=== PATIENT | female | born 1990 | race Two or more races ===

== ENCOUNTER 2016-10-23 14:35 | Observation (INO) | payer MEDICAID | END 2016-10-23 16:00 | disposition home or self-care (01) | DRG 566 | LOC: LDRP 14:35 | PROVIDERS: ADMIT Obstetrics & Gynecology; ATTEND Obstetrics & Gynecology | DX: O26.893 Other specified pregnancy related conditions, third trimester (principal); R10.30 Lower abdominal pain, unspecified; Z3A.38 38 weeks gestation of pregnancy | CPT/HCPCS: 59025; 76818; 81002; G0378 ==

== ENCOUNTER 2016-10-26 19:00 | Observation (INO) | payer MEDICAID ==
[2016-10-29] MEDS ORDERED: PREN-125 PO (21:26)
[2016-10-29] MEDS ORDERED: FERR1TAB36 PO (21:26)
== END 2016-10-26 20:34 | disposition home or self-care (01) | DRG 566 ==
LOC: LDRP 19:00
PROVIDERS: ADMIT Specialist; ATTEND Specialist
DX: O26.893 Other specified pregnancy related conditions, third trimester (principal); N89.8 Other specified noninflammatory disorders of vagina; O62.9 Abnormality of forces of labor, unspecified; Z3A.39 39 weeks gestation of pregnancy
CPT/HCPCS: 59025; 76818; 81002; G0378

== ENCOUNTER 2024-10-26 08:47 | Emergency (ER) | payer MEDICAID ==
[~2024-10-26] VITALS: Ht 160 cm; Wt 51.1 kg
[~2024-10-26 08:47] MED LIST: FERR1TAB36 PO; PREN-125 PO
[2024-10-26 10:49] VITALS: BP 121/79; PULSE 103; RESP 16; TEMP 98.2; O2SAT 98
[2024-10-26] MEDS ORDERED: IBU600T PO (11:23)
--- NOTE | 2024-10-26 11:23 | ED.PDOC ---
History of Present Illness HPI Comments 33-year-old female came to the ER stating that she has slight in the trunk on her hand this morning. Denies any other symptoms. Just pain in the right hand. Denies any past medical surgical history. Chief Complaint: Upper Extremity Time Seen by MD: 09:25 Reviewed Notes: Nurses Notes, Medications, Allergies Allergies: Coded Allergies: NO KNOWN ALLERGIES (Unverified , 10/29/16) Home Meds Active Scripts Ibuprofen Micronized (MOTRIN TABLET) 600 Mg Tb, 600 MG PO TID PRN for 3 Days, #9 TAB *Black box warning-NSAIDS can increase risk of AK & hypertension, GI irritation, ulceration, bleed, perferation. Do not use post cardiac surgery. Use short duration/lowest effective dose. Prov:GILLIAN MELGAR MD 10/26/24 Reported Medications Ferrous Sulfate (Iron (Ferrous Sulfate)) 50 Mg Tab, 50 MG PO BID, TAB 10/29/16 Vitamins W/ Ferrous S (CLINICAL NUTRIENTS PRENAT) Tab, 1 TAB PO DAILY, TAB 10/29/16 Information Source: Patient Mode of Arrival: Ambulatory Severity: Moderate Timing: Hours Duration: Since onset Past Medical History PAST MEDICAL HISTORY: Denies Surgical History: Denies all surgeries SURVEYOR MINE History: No Pertinent SURVEYOR MINE History Social History Smoker: Non-Smoker Alcohol: Denies ETOH Use Drugs: Denies Drug Use Constitutional: denies: chills, diaphoresis, fatigue, fever, malaise, sweats, weakness, others EENTM: denies: blurred vision, double vision, ear bleeding, ear discharge, ear drainage, ear pain, ear ringing, eye pain, eye redness, hearing loss, mouth pain, mouth swelling, nasal discharge, nose bleeding, nose congestion, nose pain, photophobia, tearing, throat pain, throat swelling, voice changes, others Respiratory: denies: cough, hemoptysis, orthopnea, SOB at rest, shortness of breath, SOB with excertion, stridor, wheezing, others Cardiovascular: denies: chest pain, dizzy spells, diaphoresis, Dyspnea on exertion, edema, irregular heart beat, left arm pain, lightheadedness, palpitations, PND, syncope, others Gastrointestinal: denies: abdomen distended, abdominal pain, blood streaked bowels, constipated, diarrhea, dysphagia, difficulty swallowing, hematemesis, melena, nausea, poor appetite, poor fluid intake, rectal bleeding, rectal pain, vomiting, others Genitourinary: denies: abnormal vagina bleeding, burning, dyspareunia, dysuria, flank pain, frequency, hematuria, incontinence, pain, , vagina discharge, urgency, others Neurological: denies: dizziness, fainting, headache, left sided numbness, left sided weakness, numbness, paresthesia, pre-existing deficit, right sided numbness, right sided weakness, seizure, speech problems, tingling, tremors, weakness, others Musculoskeletal: reports: others (Right hand); denies: back pain, gout, joint pain, joint swelling, muscle pain, muscle stiffness, neck pain Integumetry: denies: bruises, change in color, change in hair/nails, dryness, laceration, lesions, lumps, rash, wounds, others Allergic/Immunocompromised: denies: Difficulty Healing, Frequent Infections, Hives, Itching, others Hematologic/Lymphatic: denies: anemia, blood clots, easy bleeding, easy bruising, swollen glands, others Endocrine: denies: excessive hunger, excessive sweating, excessive thirst, excessive urination, flushing, intolerance to cold, intolerance to heat, unexplained weight gain, unexplained weight loss, others Psychiatric: denies: anxiety, bipolar disorder, depression, hopeless, panic disorder, schizophrenia, sleepless, suicidal, others Physical Exam General Appearance: Moderate Distress HEENT: Normal ENT Inspection, Pharynx Normal, TMs Normal Neck: Full Range of Motion, Non-Tender, Normal, Normal Inspection Respiratory: Chest Non-Tender, Lungs Clear, No Accessory Muscle Use, No Respiratory Distress, Normal Breath Sounds Cardiovascular: No Edema, No JVD, No Murmur, No Gallop, Normal Peripheral Pulses, Regular Rate/Rhythm Breast Exam: Deferred Gastrointestinal: No Organomegaly, Non Tender, No Pulsatile Mass, Normal Bowel Sounds, Soft Genitalia: Deferred Pelvic: Deferred Rectal: Deferred Extremities: No calf tenderness, Normal capillary refill, Normal inspection, Normal range of motion, Non-tender, No pedal edema Musculoskeletal : Apperance: Normal Neurologic: Alert, herb digger II-XII nml as Tested, No Motor Deficits, Normal Affect, Normal Mood, No Sensory Deficits Cerebellar Function: Normal Reflexes: Normal Skin: Bruises (Pain ), Dry, Normal Color, Warm Peripheral Pulses: 3+ Radial (R), 3+ Radial (L) Lymphatic: No Adenopathy Was a procedure done? Was a procedure done?: No Differential Dx Considerations may include: Strain Bruise X-Ray, Labs, Meds, VS Vital Signs Date Time Temp Pulse Resp B/P (MAP) Pulse Ox O2 Delivery O2 Flow Rate FiO2 10/26/24 10:49 98.2 103 16 121/79 (93) 98 98.2 10/26/24 08:59 98.2 103 16 121/79 (93) 98 Current Medications Medications (Trade) Dose Ordered Sig/Nora Route Start Time Stop Time Status Last Admin Ketorolac Tromethamine (Toradol Injection) 60 mg ONCE ONCE IM 10/26/24 11:30 10/26/24 11:31 DC 10/26/24 11:32 Patient alert. Complaining of right hand pain. Vitals stable. Answering all questions. Trauma to the hand. Denies loss of consciousness. There is bruising of the right hand. Good pulses. Good capillary refill. Good pink nailbed. No sign of distress. Was given prescription of Motrin. Explained to the patient. Was told to follow up with her primary care physician. Was told to come back if there is any problem. Time of 1ST Reevaluation: 11:21 Reevaluation 1ST: Unchanged Patient Education/Counseling: Diagnosis, Treatment, Prognosis, Need For Follow Up Family Education/Counseling: No Family Present Departure 1 Departure Time of Disposition: 11:22 Impression: Primary Impression: Muscle strain Disposition: 01 HOME / SELF CARE / HOMELESS Condition: Good e-Prescriptions Ibuprofen Micronized (MOTRIN TABLET) 600 Mg Tb 600 MG PO TID PRN for 3 Days, #9 TAB *Black box warning-NSAIDS can increase risk of AK & hypertension, GI irritation, ulceration, bleed, perferation. Do not use post cardiac surgery. Use short duration/lowest effective dose. Prov: GILLIAN MELGAR MD 10/26/24 Discharged With: Self Critical Care Note Critical Care Time?: No Stability Stability form required: No Heart Score Heart Score: Heart Score Response (Comments) Value History N/A 0 EKG N/A 0 Age N/A 0 Risk Factors N/A 0 Troponin N/A 0 Total 0 GILLIAN MELGAR MD Oct 26, 2024 11:23
[2024-10-26] MEDS: KETOROLAC TROMETH 60MG/2ML VIAL IM ONE (11:32)
--- NOTE | 2024-10-26 11:48 | DVH ---
CLINICAL INFORMATION: 33 years old, Female; fall injury. TECHNIQUE: 2 views of the right hand were obtained. COMPARISON: None FINDINGS: No acute fracture or dislocation. No significant arthropathy. Adjacent soft tissues are unr emarkable. IMPRESSION: No evidence of acute bony abnormality.
== END 2024-10-26 11:54 | disposition home or self-care (01) ==
LOC: ER 08:47
DX: S66.911A Strain of unspecified muscle, fascia and tendon at wrist and hand level, right hand, initial encounter (principal); Z79.1 Long term (current) use of non-steroidal anti-inflammatories (NSAID); Z79.899 Other long term (current) drug therapy; X50.1XXA Overexertion from prolonged static or awkward postures, initial encounter; Y93.89 Activity, other specified; Y92.89 Other specified places as the place of occurrence of the external cause; Y99.8 Other external cause status
CPT/HCPCS: 73120; 96372; 99283; J1885